=== PATIENT | female | born 1950 | race Caucasian/White ===

== ENCOUNTER 2021-07-22 13:27 | Emergency (ER) | payer MEDICARE, BC ==
[2021-07-22] MEDS ORDERED: Sodium Chloride 0.9% 10 ML Syringe FLUSH PRN (14:00)
--- NOTE | 2021-07-22 14:03 | EDM.PDOC ---
ED HPI GENERAL MEDICAL PROBLEM - General Chief Complaint: Skin Complaint Stated Complaint: INFECTION Time Seen by Provider: 07/22/21 14:00 Source of Information: Reports: Patient History Limitations: Reports: No Limitations - History of Present Illness INITIAL COMMENTS - FREE TEXT/NARRATIVE: 71 y/o F c/o fever, soreness under R breast since last night. Pt is being treated for breast cancer in her R breast and had a lumpectomy Jun 04. Last week pt had a port placed in her R upper chest. The soreness under R breast is constant worse with movement, no reported drainage. Hx of breast reduction surgery decades. She reports fver of 101 last night and 101 this morning for which she took Ibuprofen. She also reports that she had chemo last week at [facility]. Sees Dr. Chris Lau for oncology. The plan is for her to receive 4 rounds of chemo and then proceed with radiation. 3 cardiac stents placed in December of this year following a stress test. - Related Data Allergies Allergy/AdvReac Type Severity Reaction Status Date / Time atorvastatin [From Lipitor] Allergy Swelling Verified 07/22/21 13:48 niacin Allergy Swelling Verified 07/22/21 13:48 Home Meds: Home Meds Acetaminophen 325 mg PO ASDIRECTED PRN 09/06/18 [History] Diclofenac Sodium [Voltaren 1% Gel] 1 applic TOP ASDIRECTED 09/06/18 [History] Furosemide [Lasix] 40 mg PO DAILY 09/06/18 [History] [place]-3 Fatty Acids [[place]-3] 360 mg PO BID 09/06/18 [History] Propranolol HCl [Inderal LA] 160 mg PO BID 09/06/18 [History] Turmeric/Turmeric Root Extract [Turmeric 500 mg Capsule] 1,000 mg PO BID 09/06/18 [History] allopurinoL [Zyloprim] 300 mg PO DAILY 09/06/18 [History] amLODIPine Besylate [Amlodipine Besylate] 2.5 mg PO DAILY 09/06/18 [History] flaxseed oiL [Flaxseed Oil] 1,200 mg PO DAILY 09/06/18 [History] lisinopriL [Zestril] 40 mg PO BID 09/06/18 [History] traMADol [Ultram] 50 mg PO Q8H MDD 400 MG 09/06/18 [History] metFORMIN [Glucophage] 500 mg PO BIDMEALS 11/20/20 [History] Albuterol [Proventil HFA] 2 puff INH Q6HR PRN 02/03/21 [History] Aspirin [Adult Low Dose Aspirin EC] 81 mg PO DAILY 02/03/21 [History] Budesonide/Formoterol Fumarate [Budesonide-Formoterol 160-4.5] 2 puff INH BID 02/03/21 [History] Clopidogrel [Plavix] 75 mg PO DAILY 02/03/21 [History] Ferrous Sulfate 325 mg PO DAILY 02/03/21 [History] Rosuvastatin [Crestor] 10 mg PO BEDTIME 02/03/21 [History] DULoxetine HCl [Cymbalta] 30 mg PO DAILY 03/20/21 [History] hydroCHLOROthiazide [Hydrochlorothiazide] 50 mg PO DAILY 03/20/21 [History] Past Medical History - Past Health History Medical/Surgical History: Denies Medical/Surgical History HEENT History: Reports: None Cardiovascular History: Reports: High Cholesterol, Hypertension, Other (See Below) Other Cardiovascular History: STASIS EDEMA OF LEGS Respiratory History: Reports: Sleep Apnea, Other (See Below) Other Respiratory History: "catches colds a lot" Gastrointestinal History: Reports: Cirrhosis, GERD Genitourinary History: Reports: None Other Genitourinary History: family hx of liver and kidney transplant (sister) 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 reaction to bandaide - Infectious Disease History Infectious Disease History: Reports: Measles, Mumps - Past Surgical History Head Surgeries/Procedures: Reports: None HEENT Surgical History: Reports: Tonsillectomy Cardiovascular Surgical History: Reports: None GI Surgical History: Reports: Colonoscopy, Other (See Below) Other GI Surgeries/Procedures: 1 umbilical hernia. 1 inguinal hernia Female Surgical History: Reports: Breast Biopsy, Breast Reduction, D&C, Tubal Ligation Endocrine Surgical History: Reports: None Musculoskeletal Surgical History: Reports: Knee Replacement, Other (See Below) Other Musculoskeletal Surgeries/Procedures:: POST LEFT KNEE SURGERY Dermatological Surgical History: Reports: None Social & Family History - Family History Family Medical History: Unobtainable - Tobacco Use Tobacco Use Status *Q: Former Tobacco User Used Tobacco, but Quit: Yes Month/Year Tobacco Last Used: 06/2020 - Caffeine Use Caffeine Use: Reports: Coffee Caffeine Use Comment: Green Tea 12 oz bottle x2 daily - Recreational Drug Use Recreational Drug Use: No ED ROS GENERAL - Review of Systems Review Of Systems: Comprehensive ROS is negative, except as noted in HPI. ED EXAM, SKIN/RASH Exam: See Below Exam Limited By: No Limitations General Appearance: Alert, No Apparent Distress Eye Exam: Bilateral Eye: PERRL Throat/Mouth: Normal Inspection, Normal Lips, Normal Teeth, Normal Gums, Normal Oropharynx, Normal Voice, No Airway Compromise Head: Atraumatic, Normocephalic Neck: Normal Inspection, Supple, Non-Tender, Full Range of Motion Respiratory/Chest: No Respiratory Distress, Lungs Clear, Normal Breath Sounds, Other (incision site R upper chest from port placement. area around the stitches is reddened and inflammed with no drainage. Area under R breast tender to palpation no obvious drainage swelling. ) Cardiovascular: Normal Peripheral Pulses, Regular Rate, Rhythm GI/Abdominal: Soft, Non-Tender (Female) Exam: Deferred Rectal (Female) Exam: Deferred Back Exam: Normal Inspection, Full Range of Motion Extremities: Normal Inspection, Normal Range of Motion Course - Vital Signs Last Recorded V/S: Last Vital Signs Temp 97.8 F 07/22/21 13:48 Pulse 98 07/22/21 13:48 Resp 20 07/22/21 13:48 BP 130/86 07/22/21 13:48 Pulse Ox 95 07/22/21 13:48 - Orders/Labs/Meds Orders: Active Orders 24 hr Category Date Time Status Peripheral IV Care [RC] . DIRECTED Care 07/22/21 14:01 Active CULTURE BLOOD [BC] Stat Lab 07/22/21 14:14 Received CULTURE BLOOD [BC] Stat Lab 07/22/21 14:17 Received CULTURE URINE [RM] Stat Lab 07/22/21 14:50 Received Sodium Chloride 0.9% [Saline Flush] Med 07/22/21 14:00 Active 10 ml FLUSH ASDIRECTED PRN Blood Culture x2 Reflex Set [OM.PC] Stat Oth 07/22/21 14:00 Ordered Peripheral IV Insertion Adult [OM.PC] Routine Oth 07/22/21 14:00 Ordered Medication Orders Sodium Chloride (Sodium Chloride 0.9% 10 Ml Syringe) 10 ml FLUSH ASDIRECTED PRN PRN Reason: Keep Vein Open Last Admin: 07/22/21 15:54 Dose: 10 ml Documented by: LARRY Labs: Laboratory Tests 07/22/21 07/22/21 07/22/21 Range/Units 14:14 14:14 14:14 WBC 2.0 L (5.0-10.0) 10^3/uL RBC 4.07 L (4.2-5.4) 10^6/uL Hgb 13.3 (12.0-16.0) g/dL Hct 40.0 (37.0-47.0) % MCV 98.3 (80-100) fL MCH 32.7 (27.0-34.0) pg MCHC 33.3 (33.0-35.0) g/dL Plt Count 179 (150-450) 10^3/uL Neut % (Auto) 10.6 L (42.2-75.2) % Lymph % (Auto) 52.8 H (20.5-50.1) % Russell % (Auto) 31.0 H (2-8) % Eos % (Auto) 4.6 H (1.0-3.0) % Baso % (Auto) 1.0 (0.0-1.0) % Add Manual Diff Yes Neutrophils % (Manual) 5 L (42-75) % Band Neutrophils % 5 % Lymphocytes % (Manual) 49 (20-50) % Monocytes % (Manual) 32 H (2-8) % Eosinophils % (Manual) 9 H (1-3) % Sodium 138 (136-145) mmol/L Potassium 3.7 (3.5-5.1) mmol/L Chloride 100 (98-107) mmol/L Carbon Dioxide 28 (21-32) mmol/L Anion Gap 13.7 H (7-13) mEq/L BUN 16 (7-18) mg/dL Creatinine 0.84 (0.55-1.02) mg/dL Est Cr Clr Drug Dosing 52.28 mL/min Estimated GFR (MDRD) > 60 BUN/Creatinine Ratio 19.0 (No establ ref range) Glucose 113 H (70-99) mg/dL Lactic Acid 1.2 (0.4-2.0) mmol/L Calcium 10.0 (8.5-10.1) mg/dL Total Bilirubin 0.7 (0.2-1.0) mg/dL AST 28 (15-37) U/L ALT 29 (14-59) U/L Alkaline Phosphatase 75 (46-116) U/L C-Reactive Protein 12.0 H (0.0-0.9) mg/dL Total Protein 7.0 (6.4-8.2) g/dL Albumin 2.8 L (3.4-5.0) g/dL Globulin 4.2 Albumin/Globulin Ratio 0.67 Urine Color (YELLOW) Urine Appearance (CLEAR) Urine pH (5.0-9.0) Ur Specific [place] (1.005-1.030) Urine Protein (NEGATIVE) Urine Glucose (UA) (NEGATIVE) Urine Ketones (NEGATIVE) Urine Occult Blood (NEGATIVE) Urine Nitrite (NEGATIVE) Urine Bilirubin (NEGATIVE) Urine Urobilinogen (0.2-1.0) mg/dL Ur Leukocyte Esterase (NEGATIVE) Urine RBC (0-5) /HPF Urine WBC (0-5/HPF) /HPF Ur Epithelial Cells (NOT SEEN) /HPF Amorphous Sediment (NOT SEEN) /HPF Urine Bacteria (0-FEW/HPF) /HPF Fine Granular Casts (NOT SEEN) /LPF Urine Mucus (NOT SEEN) /LPF 07/22/21 Range/Units 14:50 WBC (5.0-10.0) 10^3/uL RBC (4.2-5.4) 10^6/uL Hgb (12.0-16.0) g/dL Hct (37.0-47.0) % MCV (80-100) fL MCH (27.0-34.0) pg MCHC (33.0-35.0) g/dL Plt Count (150-450) 10^3/uL Neut % (Auto) (42.2-75.2) % Lymph % (Auto) (20.5-50.1) % Russell % (Auto) (2-8) % Eos % (Auto) (1.0-3.0) % Baso % (Auto) (0.0-1.0) % Add Manual Diff Neutrophils % (Manual) (42-75) % Band Neutrophils % % Lymphocytes % (Manual) (20-50) % Monocytes % (Manual) (2-8) % Eosinophils % (Manual) (1-3) % Sodium (136-145) mmol/L Potassium (3.5-5.1) mmol/L Chloride (98-107) mmol/L Carbon Dioxide (21-32) mmol/L Anion Gap (7-13) mEq/L BUN (7-18) mg/dL Creatinine (0.55-1.02) mg/dL Est Cr Clr Drug Dosing mL/min Estimated GFR (MDRD) BUN/Creatinine Ratio (No establ ref range) Glucose (70-99) mg/dL Lactic Acid (0.4-2.0) mmol/L Calcium (8.5-10.1) mg/dL Total Bilirubin (0.2-1.0) mg/dL AST (15-37) U/L ALT (14-59) U/L Alkaline Phosphatase (46-116) U/L C-Reactive Protein (0.0-0.9) mg/dL Total Protein (6.4-8.2) g/dL Albumin (3.4-5.0) g/dL Globulin Albumin/Globulin Ratio Urine Color Dark yellow (YELLOW) Urine Appearance Turbid (CLEAR) Urine pH 6.0 (5.0-9.0) Ur Specific [place] 1.025 (1.005-1.030) Urine Protein 100 H (NEGATIVE) Urine Glucose (UA) Negative (NEGATIVE) Urine Ketones Trace H (NEGATIVE) Urine Occult Blood Negative (NEGATIVE) Urine Nitrite Negative (NEGATIVE) Urine Bilirubin Small H (NEGATIVE) Urine Urobilinogen 1.0 (0.2-1.0) mg/dL Ur Leukocyte Esterase Trace H (NEGATIVE) Urine RBC 0-5 (0-5) /HPF Urine WBC 5-10 H (0-5/HPF) /HPF Ur Epithelial Cells Many H (NOT SEEN) /HPF Amorphous Sediment Moderate H (NOT SEEN) /HPF Urine Bacteria Moderate H (0-FEW/HPF) /HPF Fine Granular Casts Few H (NOT SEEN) /LPF Urine Mucus Few H (NOT SEEN) /LPF Meds: Medications Generic Name Dose Route Start Last Admin Trade Name Freq PRN Reason Stop Dose Admin Sodium Chloride 10 ml 07/22/21 14:00 07/22/21 15:54 Sodium Chloride 0.9% 10 Ml Syringe FLUSH 10 ml ASDIRECTED PRN Administration Keep Vein Open Discontinued Medications Generic Name Dose Route Start Last Admin Trade Name Dominga PRN Reason Stop Dose Admin Levofloxacin/Dextrose 500 mg/ 100 mls @ 100 mls/hr 07/22/21 15:43 07/22/21 15:54 Premix IV 07/22/21 16:42 100 mls/hr ONETIME ONE Administration - Re-Assessments/Exams Free Text/Narrative Re-Assessment/Exam: 07/22/21 16:[address] Melo ATKINSON at [facility] who stated he could not make a diagnosis of an infected port over the phone. He advised to consult with oncology to see what they reccomend. I spoke with Neymar Velez SEWER SEPARATION DESIGNER at [facility] oncology who advised to give the pt Levoquin for 5 days and have her follow up with them on Tuesday. Neymar Mcleod stated that [facility] would contact the pt to schedule an appointment. Neymar also requested the pt have a cxr to rule out infiltrates. Departure - Departure Time of Disposition: 17:00 Disposition: Home, Self-Care 01 Condition: Fair Clinical Impression: Lymphadenopathy Fever Qualifiers: Fever type: unspecified Qualified Code(s): R50.9 - Fever, unspecified Neutropenia Qualifiers: Neutropenia type: unspecified Qualified Code(s): D70.9 - Neutropenia, unspecified - Discharge Information *PRESCRIPTION DRUG MONITORING PROGRAM REVIEWED*: Not Applicable *COPY OF PRESCRIPTION DRUG MONITORING REPORT IN PATIENT ROB: Not Applicable Instructions: Neutropenic Fever Forms: ED Department Discharge Additional Instructions: RX: Levaquin Follow up with [facility] On[facility] Tuesday. [facility] should be calling you to schedule an appointment. If you do not hear from [facility] by tomorrow afternoon call them to schedule an appointment. Use Tylenol and or Ibuprofen for pain as needed. If any new symptoms or concerns develop contact your primary care facility or return to the ER. Sepsis Event Note (ED) - Evaluation Sepsis Screening Result: No Definite Risk - Focused Exam Vital Signs: Vital Signs Temp Pulse Resp BP Pulse Ox 07/22/21 13:48 97.8 F 98 20 130/86 95 - My Orders Last 24 Hours: My Active Orders 07/22/21 14:00 Sodium Chloride 0.9% [Saline Flush] 10 ml FLUSH ASDIRECTED PRN Blood Culture x2 Reflex Set [OM.PC] Stat Peripheral IV Insertion Adult [OM.PC] Routine 07/22/21 14:01 Peripheral IV Care [RC] . DIRECTED 07/22/21 14:14 CULTURE BLOOD [BC] Stat 07/22/21 14:17 CULTURE BLOOD [BC] Stat 07/22/21 14:50 CULTURE URINE [RM] Stat - Assessment/Plan Last 24 Hours: My Active Orders 07/22/21 14:00 Sodium Chloride 0.9% [Saline Flush] 10 ml FLUSH ASDIRECTED PRN Blood Culture x2 Reflex Set [OM.PC] Stat Peripheral IV Insertion Adult [OM.PC] Routine 07/22/21 14:01 Peripheral IV Care [RC] . DIRECTED 07/22/21 14:14 CULTURE BLOOD [BC] Stat 07/22/21 14:17 CULTURE BLOOD [BC] Stat 07/22/21 14:50 CULTURE URINE [RM] Stat
[2021-07-22 14:48] LABS: ANION GAP 13.7 mEq/L (7-13); CHLORIDE,CL 100 mmol/L (98-107); SODIUM,NA 138 mmol/L (136-145)
[2021-07-22] MEDS ORDERED: Levofloxacin/Dextrose 5%-Water 500 MG in Premix Bag 1 BAG IV ONE (15:43)
--- NOTE | 2021-07-22 16:28 | CR ---
EXAMINATION: Chest 2V SEX: Female AGE: 71 years CLINICAL HISTORY: 71-year-old neutropenic female with cough. Obese, hypertensive and diabetic female smoker is known to have "stage II chronic kidney disease, bilateral nephrolithiasis, suspicious gallbladder and sigmoid diverticulosis" (CT exam November 2020). Interpretation: Right supraclavicular central venous line. Osteopenia, old fractures and hypertrophic spondylosis kyphotic dorsal spine. Normal cardiac silhouette (size and configuration). No pulmonary vascular congestion, new cephalization of vascular flow, alveolar edema or dependent pleural fluid accumulation since 05 October 2007 comparison film. No new lung mass, hilar lymphadenopathy, alveolar infiltrate, or peripheral "groundglass" interstitial lung densities. No pneumothorax or pneumomediastinum. CONCLUSION: No new evidence heart failure or pneumonia.
== END 2021-07-22 17:24 | disposition home or self-care (01) ==
LOC: DL.ED 13:27
DX: D70.9 Neutropenia, unspecified (principal); R50.81 Fever presenting with conditions classified elsewhere; R59.1 Generalized enlarged lymph nodes; E78.00 Pure hypercholesterolemia, unspecified; I10 Essential (primary) hypertension; M10.9 Gout, unspecified; E66.9 Obesity, unspecified; M19.90 Unspecified osteoarthritis, unspecified site; Z87.891 Personal history of nicotine dependence; Z79.02 Long term (current) use of antithrombotics/antiplatelets; Z79.899 Other long term (current) drug therapy; Z88.1 Allergy status to other antibiotic agents; Z88.8 Allergy status to other drugs, medicaments and biological substances; Z79.82 Long term (current) use of aspirin; Z68.41 Body mass index [BMI] 40.0-44.9, adult
CPT/HCPCS: 36415; 71046; 80053; 81001; 83605; 85025; 86140; 87040; 87086; 96365; 99284; J1956

== ENCOUNTER 2022-12-09 05:41 | Day surgery (SDC) | payer MEDICARE, BC ==
[~2022-12-09 05:41] MED LIST: Dextrose 5%-0.45% NaCl 1,000 ML IV SCH; Sodium Chloride 0.9% 10 ML Syringe FLUSH PRN; Sodium Chloride 0.9% 10 ML Syringe FLUSH SCH
[2022-12-09] MEDS ORDERED: Dextrose 5%-0.45% NaCl 1,000 ML IV SCH (06:00)
[2022-12-09] MEDS ORDERED: fentaNYL 100 MCG/2 ML SDV ONE (06:13)
[2022-12-09] MEDS ORDERED: Midazolam 1 MG/ML 2 ML SDV ONE (06:13)
[2022-12-09] MEDS ORDERED: Midazolam 1 MG/ML 2 ML SDV IV ONE ×5 (06:22→06:30)
[2022-12-09] MEDS ORDERED: fentaNYL 100 MCG/2 ML SDV IV ONE ×2 (06:22)
== END 2022-12-09 08:45 | disposition home or self-care (01) ==
LOC: DL.ENDO 05:41
PROVIDERS: ATTEND Internal Medicine Gastroenterology
DX: Z12.11 Encounter for screening for malignant neoplasm of colon (principal); K57.30 Diverticulosis of large intestine without perforation or abscess without bleeding; E78.5 Hyperlipidemia, unspecified; I10 Essential (primary) hypertension; M06.9 Rheumatoid arthritis, unspecified; G47.33 Obstructive sleep apnea (adult) (pediatric); F32.A Depression, unspecified; E66.09 Other obesity due to excess calories; Z86.010 Personal history of colon polyps; Z68.41 Body mass index [BMI] 40.0-44.9, adult; Z88.8 Allergy status to other drugs, medicaments and biological substances
CPT/HCPCS: G0105; J2250; J3010; J7042

== ENCOUNTER 2023-03-22 14:35 | Emergency (ER) | payer MEDICARE, BC ==
[2023-03-22] MEDS ORDERED: Acetaminophen/HYDROcodone 325-5 MG Tab PO ONE (14:55)
[2023-03-22] MEDS ORDERED: Take Home: Acetaminophen/HYDROcodone 325-5 MG, 5 Tab Pack PO ONE (15:35)
== END 2023-03-22 16:10 | disposition home or self-care (01) ==
LOC: DL.ED 14:35
DX: S20.213A Contusion of bilateral front wall of thorax, initial encounter (principal); S60.051A Contusion of right little finger without damage to nail, initial encounter; E78.00 Pure hypercholesterolemia, unspecified; I10 Essential (primary) hypertension; K21.9 Gastro-esophageal reflux disease without esophagitis; M19.90 Unspecified osteoarthritis, unspecified site; E66.9 Obesity, unspecified; Z88.8 Allergy status to other drugs, medicaments and biological substances; Z79.82 Long term (current) use of aspirin; Z79.899 Other long term (current) drug therapy; Z95.5 Presence of coronary angioplasty implant and graft; Z68.44 Body mass index [BMI] 60.0-69.9, adult; W19.XXXA Unspecified fall, initial encounter; W18.30XA Fall on same level, unspecified, initial encounter
CPT/HCPCS: 71110; 99283; 99284; A9270-GY